=== PATIENT | female | born 1995 | race Caucasian/White ===

== ENCOUNTER 2021-02-03 04:44 | Emergency (ER) | payer MEDICAID, OTHER ==
[~2021-02-03] VITALS: Ht 160 cm; Wt 84.1 kg
[2021-02-03 05:07] LABS: COVID AG,FIA SOURCE NASOPHARYNGEAL
[2021-02-03 06:52] VITALS: BP 127/68
== END 2021-02-03 07:18 | disposition home or self-care (01) ==
LOC: EMS 04:52
DX: F31.9 Bipolar disorder, unspecified (principal); Z20.822 Contact with and (suspected) exposure to COVID-19
CPT/HCPCS: 99283